=== PATIENT | male | born 1940 | race Caucasian/White ===

== ENCOUNTER → 2019-07-14 | Outpatient (CLI) | payer MEDICARE ==
[2019-07-14 12:39] LABS: CALCIUM, TOTAL 9.5 mg/dL (8.8-10.5); CREATININE 1.27 mg/dL (0.60-1.30); PHOSPHORUS 3.2 mg/dL (2.5-4.9); POTASSIUM 4.2 mmol/L (3.5-5.1)
[2019-07-14 13:08] LABS: APPEARANCE,URINE CLEAR (CLEAR); BILIRUBIN,URINE NEGATIVE (NEGATIVE); GLUCOSE, URINE (UA) NEGATIVE (NEGATIVE); KETONES,URINE NEGATIVE (NEGATIVE); LEUKOCYTE ESTERASE ,URINE NEGATIVE (NEGATIVE); NITRATE,URINE NEGATIVE (NEGATIVE); OCCULT BLOOD,URINE NEGATIVE (NEGATIVE); PROTEIN,URINE NEGATIVE (NEGATIVE); UROBILINOGEN,URINE 0.2 mg/dL (<=1.0)
[2019-07-15 16:55] LABS: CREATININE,URINE 70.8 mg/dL (30.0-125.0); TPROTEIN TIMED,URINE 7 mg/dL
[2019-07-15 17:00] LABS: COLLECTION TIME,URINE 24 HR; CREAT CLEARANCE/1.73sq.meter 101 ml/min (85-125); CREATININE,SERUM FOR CRCL 1.27 mg/dL (0.60-1.30); TOTAL VOLUME,CREAT CLR 2600 mL; TPROTEIN URINE, 24HRS COLL 182 mg/24Hr (0-165)
== END | disposition home or self-care (01) ==
LOC: LABPV 11:13
PROVIDERS: ATTEND Internal Medicine Nephrology
DX: I12.9 Hypertensive chronic kidney disease with stage 1 through stage 4 chronic kidney disease, or unspecified chronic kidney disease (principal); N18.3 Chronic kidney disease, stage 3 (moderate); N28.1 Cyst of kidney, acquired
CPT/HCPCS: 81050; 82043; 82306; 82570; 82575; 83735; 83970; 84156